=== PATIENT | male | born 1965 | race Caucasian/White ===

== ENCOUNTER 2019-01-18 11:22 | Emergency (ER) | payer MEDICAID ==
[~2019-01-18] VITALS: Ht 177.8 cm; Wt 136.1 kg
[2019-01-18 11:39] VITALS: BP 123/68
[2019-01-18] MEDS ORDERED: NYSTATIN15 GM TOPIC (12:09)
[2019-01-18] MEDS ORDERED: Bicillin LA 2.4MMU/4ML SYR IM ONE (12:15)
--- NOTE | 2019-01-18 12:42 | Emergency Room Report ---
History of Present Illness General Chief Complaint: Male Urogenital Problems Source: Patient Present Illness HPI Patient is a 53-year-old male presented after increased penile rash. Patient states that he had been having increased discomfort to the ventral aspect of his penis. This began after receiving oral sex from a prostitute in [facility] proximately 2 weeks prior to arrival.Patient denies any dysuria or penile discharge. He reports having prior syphilis in the past. Testicular pain or swelling. Allergies: Coded Allergies: No Known Allergies (Unverified , 01/18/19) Patient History Past Medical History: see triage record Reviewed Nursing Documentation: PMH: Agreed; PSxH: Agreed Nursing Documentation-PMH Past Medical History: No History, Except For Hx Cardiac Problems: Yes - CHF Hx Hypertension: Yes Hx Gastrointestinal Problems: Yes Review of Systems All Other Systems: negative except mentioned in HPI Physical Exam Vital Signs Date Time Temp Pulse Resp B/P (MAP) Pulse Ox O2 Delivery O2 Flow Rate FiO2 01/18/19 11:25 98.2 78 20 123/68 (86) 92 Room Air Sp02 EP Interpretation: reviewed, normal General Appearance: normal inspection, well appearing, no apparent distress, alert, GCS 15, obese Head: atraumatic ENT: normal ENT inspection, hearing grossly normal, normal voice Neck: normal inspection, full range of motion, supple, no bony tend Respiratory: normal inspection, lungs clear, normal breath sounds, no respiratory distress, no retraction, no wheezing Cardiovascular #1: regular rate, rhythm, no edema Gastrointestinal: normal inspection, normal bowel sounds, non tender, soft, no guarding, no hernia Genitourinary: other - circumcised male slight erythema to ventral side of penis below the penile head, no definite ulcer seen Musculoskeletal: normal inspection, back normal, normal range of motion Neurologic: normal inspection, alert, oriented x3, responsive, speech normal Psychiatric: normal inspection, judgement/insight normal, mood/affect normal Medical Decision Making Diagnostic Impression: Primary Impression: Penile lesion ER Course Presented for penile rash. Differential diagnosis include was not limited to syphilis, chancroid, balanitis among others. Patient was noted to have what appears to be a rash to his penis which is possibly related to recent unprotected sexual intercourse. This may be syphilis. I did advise the patient to have testing done for possible STD. Patient will to be treated empirically with Bicillin LA for possible syphilitic lesion.Patient is advised to have full battery of outpatient STD testing. Is advised to return if worse.. Last Vital Signs Date Time Temp Pulse Resp B/P (MAP) Pulse Ox O2 Delivery O2 Flow Rate FiO2 01/18/19 11:39 98.2 78 20 123/68 92 Room Air Status: improved Disposition: HOME, SELF-CARE Condition: Stable Scripts Nystatin* (NYSTATIN*) 15 Gm Cream..g. 1 APPLIC TOPIC THREE TIMES A DAY, #15 GM Prov: Samm Rea MD 01/18/19 Referrals: NOT CHOSEN IPA/,REFERRING (PCP) Patient Instructions: Samm Rodriguez MD Jan 18, 2019 12:42
[2019-01-18 13:23] VITALS: BP 123/68
== END 2019-01-18 13:21 | disposition home or self-care (01) ==
LOC: EMR 12:00
DX: N48.29 Other inflammatory disorders of penis (principal); I11.0 Hypertensive heart disease with heart failure; I50.9 Heart failure, unspecified
CPT/HCPCS: 96372; 99283